=== PATIENT | male | born 1985 | race Caucasian/White ===

== ENCOUNTER 2016-07-10 20:10 | Emergency (ER) | payer SELFPAY ==
[~2016-07-10] VITALS: Ht 172.7 cm; Wt 121.6 kg
[~2016-07-10 20:10] MED LIST: HYDR1CAP2; PRD20T PO; [UNRECOGNIZED DRUG - CODE]
[2016-07-10] MEDS ORDERED: TETANUS,DIPTH,PERTUSS P/F (BOOSTRIX) 0.5 ML VIAL IM ONE (20:30)
[2016-07-10] MEDS ORDERED: LIDOCAINE 1% INJ 20 ML (XYLOCAINE) VIAL INJ ONE (20:30)
--- NOTE | 2016-07-10 21:10 | ED General ---
General Chief Complaint: Laceration Stated Complaint: R HAND FINGER LAC Nursing Triage Note: pt came to ed ambulatory. states he cut his right first finger cutting bread. Pt states pain is 0/10 at this time. Nursing Sepsis Screen: No Definite Risk Source of Information: Patient Exam Limitations: No Limitations History of Present Illness Time Seen by Provider: 20:25 Initial Comments Patient reports cutting the palmar aspect of his right index finger on a new kitchen knife just prior to arrival. He has not up-to-date on his immunizations. Distal sensation, capillary refill, and movement intact. Laceration is still bleeding. Allergies and Home Medications Allergies Coded Allergies: iodine (Verified Allergy, Unknown, 07/10/16) Home Medications Hydrocodone Bit/Acetaminophen 1 Cap Capsule, (Reported) Penicillin V Potassium 250 Mg Tab, (Reported) Prednisone 20 Mg Tab, 20 MG PO BID for 5 Days, Ref 0 Prescribed by: BRITTANY ROD on 08/11/102108 Constitutional: no symptoms reported EENTM: no symptoms reported Respiratory: no symptoms reported Cardiovascular: no symptoms reported Gastrointestinal: no symptoms reported Genitourinary: no symptoms reported Musculoskeletal: no symptoms reported Skin: see HPI Psychiatric/Neurological: No Symptoms Reported Past Wvjvyuz-Osoymi-Ibjswl Hx Patient Social History Alcohol Use: Occasionally Uses Recreational Drug Use: No Smoking Status: Current Everyday Smoker Type Used: Cigarettes 2nd Hand Smoke Exposure: Yes Recent Foreign Travel: No Contact w/Someone Who Travel: No Recent Infectious Disease Expo: No Recent Hopitalizations: No Immunizations Up To Date Tetanus Booster (TDap): More than 5yrs Seasonal Allergies Seasonal Allergies: No Surgeries HX Surgeries: No Respiratory Hx Respiratory Disorders: Yes (tobaccoism) Respiratory Disorders: Asthma Cardiovascular Hx Cardiac Disorders: No Neurological Hx Neurological Disorders: No Reproductive System Hx Reproductive Disorders: No Genitourinary Hx Genitourinary Disorders: No Gastrointestinal Hx Gastrointestinal Disorders: No Musculoskeletal Hx Musculoskeletal Disorders: No Endocrine Hx Endocrine Disorders: No HEENT HX ENT Disorders: No Cancer Hx Cancer: No Psychosocial Hx Psychiatric Problems: No Integumentary HX Skin/Integumentary Disorder: No Blood Transfusions Hx Blood Disorders: No Physical Exam Vital Signs Vital Sign - Last 12Hours 07/10/16 20:20 Temp 98.2 Pulse 89 Resp 16 B/P (MAP) 138/97 Pulse Ox 99 Capillary Refill : Less Than 3 Seconds General Appearance: No Apparent Distress, WD/WN HEENT: Normal ENT Inspection Respiratory: No Accessory Muscle Use, No Respiratory Distress, Wheezing Cardiovascular: Regular Rate, Rhythm, No Edema Extremity: Other (2 cm laceration on the palmar aspect of the right index finger) Neurologic/Psychiatric: Alert, Oriented x3, No Motor/Sensory Deficits, Normal Mood/Affect, 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 Chlorhexidine was used to prep the skin. Tourniquet was applied to the finger. Anesthesia was performed with a nerve block as well as localized injection. Wound was approximated in an interrupted fashion. Patient tolerated the procedure well. Progress/Results/Core Measures Results/Orders My Orders Orders - ARPAN RAMIREZ MD Dipht,Pertuss(Acell),Tet Adult (Boostrix (07/10/16 20:30) Lidocaine 1% Injection (Xylocaine 1% Inj (07/10/16 20:30) Medications Given in ED Current Medications Medications Dose Ordered Sig/Kaleigh Route Start Time Stop Time Status Last Admin Dose Admin Diphtheria/ Tetanus/Acell Pertussis 0.5 ml ONCE ONCE IM 07/10/16 20:30 07/10/16 20:31 DC 07/10/16 20:34 0.5 ML Lidocaine HCl 20 ml ONCE ONCE INJ 07/10/16 20:30 07/10/16 20:31 DC 07/10/16 20:35 10 ML Vital Signs/I&O Vital Sign - Last 12Hours 07/10/16 07/10/16 20:20 21:20 Temp 98.2 98.2 Pulse 89 91 Resp 16 16 B/P (MAP) 138/97 Pulse Ox 99 97 Blood Pressure Mean: 111 Progress Note : Progress Note Boostrix immunization was provided. Wound was approximated with 5 sutures. Patient tolerated the procedure well. Departure Impression Impression: Primary Impression: Finger laceration Qualified Codes: S61.219A - Laceration without foreign body of unspecified finger without damage to nail, initial encounter Disposition: 01 HOME, SELF-CARE Condition: Improved Departure-Patient Inst. Decision time for Depature: 20:30 Referrals: [facility] (PCP/Family) Primary Care Physician Patient Instructions: Laceration Repair With Stitches (DC) Add. Discharge Instructions: Keep the wound clean and dry other than normal handwashing and showering. Cover the wound anytime it could become dirty. Return to have the sutures removed in about 7 days. Monitor for signs of infection such as increasing pain , increasing redness, increasing swelling, puslike drainage, or fever. Return to care immediately if you notice these symptoms. You may use Tylenol and/or ibuprofen for pain. If the wound oozes blood, elevate and apply gentle pressure for about 15 or 20 minutes. Avoid submersion or wet dirty environments until sutures are removed. All discharge instructions reviewed with patient and/or family. Voiced understanding. Work/School Note: Work Release Form Date Seen in the Emergency Department: Jul 10, 2016 Return to Work: Jul 11, 2016 Other Restrictions Listed Below: No submersion or wet dirty exposure of right hand until sutures are removed ARPAN RAMIREZ MD Jul 10, 2016 21:10
[2016-07-10 21:20] VITALS: BP 138/104
== END 2016-07-10 21:20 | disposition home or self-care (01) ==
LOC: EDUNIT# 20:10 → ER 20:12
DX: S61.210A Laceration without foreign body of right index finger without damage to nail, initial encounter (principal); Y92.009 Unspecified place in unspecified non-institutional (private) residence as the place of occurrence of the external cause; W26.0XXA Contact with knife, initial encounter; Y93.G1 Activity, food preparation and clean up; Y99.8 Other external cause status
CPT/HCPCS: 12001; 64450; 90471; 90715